=== PATIENT | female | born 1930 ===

== ENCOUNTER → 2021-04-18 | Outpatient (CLI) | payer MEDICARE | LOC: COL.RAD 07:30 | DX: S06.5X9A Traumatic subdural hemorrhage with loss of consciousness of unspecified duration, initial encounter (principal); J32.9 Chronic sinusitis, unspecified; I82.411 Acute embolism and thrombosis of right femoral vein ==

== ENCOUNTER 2021-04-26 06:38 | Day surgery (SDC) | payer MEDICARE ==
[2021-04-26] VITALS (9 sets, daily range): BP systolic 131–158; BP diastolic 61–99; PULSE 78–83; TEMP 97.8
[~2021-04-26] VITALS: Ht 165.1 cm; Wt 44.6 kg
[2021-04-26] MEDS ORDERED: ZEBETA10 MG PO (08:11)
[2021-04-26] MEDS ORDERED: DULCOLAX S10 MG/SUPP RC (08:11)
[2021-04-26] MEDS ORDERED: TYLENOL SU650 MG/SUP RC (08:12)
[2021-04-26] MEDS ORDERED: IMODIUM 2MG CAPS2 MG PO (08:13)
[2021-04-26] MEDS ORDERED: DIAPERRASHOINT TOP (08:13)
[2021-04-26] MEDS ORDERED: ANUSOL HC CREAM30 GM TP (08:13)
[2021-04-26] MEDS ORDERED: METAMUCIL3.4 GM/DOS PO (08:14)
[2021-04-26] MEDS ORDERED: MIRALAX PA17 GM/Dose PO (08:14)
[2021-04-26] MEDS ORDERED: ZESTRIL 10MG10 MG PO (08:14)
[2021-04-26] MEDS ORDERED: MILK OF MA400 MG/52 PO (08:15)
[2021-04-26] MEDS ORDERED: MYLANTA 150 ML150 M1 PO (08:15)
[2021-04-26] MEDS ORDERED: PRILOSEC 20MG20 MG PO (08:16)
[2021-04-26] MEDS ORDERED: TYLENOL 325MG325 MG PO (08:16)
--- NOTE | 2021-04-26 09:02 | NUR ---
SEE MERGE DOCUMENTATION FOR MEDICATION ADMINISTRATION AND INTRA/POST PROCEDURE SEDATION ASSESSMENTS.
--- NOTE | 2021-04-26 11:15 | NUR ---
Pt assisted to dress by this nurse and daughter. She is able to stand and pivot to wheelchair with x1 assist. Dressing over left groin puncture site remains clean dry and intact. Area is soft to palpation. INT DC'd with catheter intact. Pt is tolerating sips of coffee without issue. Pt assisted out by wheelchair to [facility] van, daughter takes DC paperwork.
== END 2021-04-26 13:22 ==
LOC: COL.CAR 06:38
DX: I82.411 Acute embolism and thrombosis of right femoral vein (principal); S06.5X9A Traumatic subdural hemorrhage with loss of consciousness of unspecified duration, initial encounter
CPT/HCPCS: C1880; C1894; J1200; J1644; J7120; Q9967

== ENCOUNTER → 2021-05-18 | Outpatient (CLI) | payer MEDICARE ==
[~2021-05-18] MED LIST: ANUSOL HC CREAM30 GM TP; ASPIRIN 81M81 MG/TA2 PO; DEBROX OT; DESITIN RAPID REL13% TP; DIAPERRASHOINT TOP; DULCOLAX S10 MG/SUPP RC; IMODIUM 2MG CAPS2 MG PO; METAMUCIL3.4 GM/DOS PO; MILK OF MA400 MG/52 PO; MIRALAX PA17 GM/Dose PO; MYLANTA 150 ML150 M1 PO; PRILOSEC 20MG20 MG PO; TYLENOL 325MG325 MG PO; TYLENOL SU650 MG/SUP RC; ZEBETA10 MG PO; ZESTRIL 10MG10 MG PO; ZOFRAN 4MG T4 MG/TAB PO
[2021-05-18 16:28] LABS: BASO % 0.2 % (0.0-2.0); ERYTHROCYTE SEDIMENTATION RATE 4 mm/hr (0-30); GRAN # 14.6 K/mm3 (1.4-6.5); GRAN % 89.1 % (42.2-75.2); HEMATOCRIT 37.6 % (37.0-47.0); HEMOGLOBIN 11.8 g/dl (12.5-16.0); MEAN CELL VOLUME 91 fl (80.0-100.0); MEAN CORPUSCULAR HEMOGLOBIN 28 pg (27-31); MEAN CORPUSCULAR HGB CONC 31 g/dl (33.0-37.0); MEAN PLATELET VOLUME 10.7 fl (7.4-10.4); MONO # 0.7 K/mm3 (0.1-0.6); MONO % 4.3 % (1.7-9.3); PLATELET COUNT 184 K/mm3 (130-400); RED BLOOD COUNT 4.15 M/mm3 (4.10-5.30); REDCELL DISTRIBUTION WIDTH-CV 19.8 % (11.5-14.5)
[2021-05-18 16:46] LABS: ALBUMIN 1.8 gm/dL (3.4-4.8); BILIRUBIN,TOTAL 0.6 mg/dL (0.2-1.2); CALCIUM 7.6 mg/dL (8.4-10.2); CREATININE, serum 0.81 mg/dL (0.57-1.11); POTASSIUM 3.7 mmol/L (3.5-4.5); TOTAL PROTEIN 5.7 gm/dL (6.2-8.1)
== END ==
LOC: ZCOL.LAB 15:58
PROVIDERS: Internal Medicine
DX: Z01.89 Encounter for other specified special examinations (principal)

== ENCOUNTER 2021-05-19 05:56 | Inpatient (IN) | payer MEDICARE ==
[~2021-05-19] VITALS: Ht 165.1 cm; Wt 43.2 kg
[~2021-05-19 05:56] MED LIST changes: -ASPIRIN 81M81 MG/TA2 PO; -DEBROX OT; -DESITIN RAPID REL13% TP; -ZOFRAN 4MG T4 MG/TAB PO
[2021-05-19 07:09] LABS: COLLECTION METHOD CATHETER
[2021-05-19 07:23] LABS: PH 5 (5-8); SQUAMOUS EPITHELIAL None Seen /hpf (0-10); URINE APPEARANCE Hazy (CLEAR/HAZY); URINE BACTERIA Rare /hpf (NONE SEEN); URINE BILIRUBIN Negative (NEGATIVE); URINE BLOOD 2+ (NEGATIVE); URINE COLOR Yellow (YELLOW); URINE GLUCOSE Negative (NEGATIVE); URINE KETONE Negative (NEGATIVE); URINE LEUKOCYTE ESTERASE 2+ (NEGATIVE); URINE NITRATE Negative (NEGATIVE); URINE PROTEIN(semi-quant) Negative (NEGATIVE); URINE RBC 20-50 /hpf (0-2); URINE UROBILINOGEN Negative (NEGATIVE)
[2021-05-19 08:08] LABS: BASO % 0.2 % (0.0-2.0); EOS % 0.1 % (0.0-4.0); GRAN # 17.9 K/mm3 (1.4-6.5); GRAN % 89.6 % (42.2-75.2); LYMPH # 1.2 K/mm3 (1.2-3.4); LYMPH % 6.2 % (20.0-51.0); MEAN CELL VOLUME 95 fl (80.0-100.0); MEAN CORPUSCULAR HGB CONC 30 g/dl (33.0-37.0); MEAN PLATELET VOLUME 10.1 fl (7.4-10.4); MONO # 0.6 K/mm3 (0.1-0.6); PLATELET COUNT 118 K/mm3 (130-400); RED BLOOD COUNT 3.01 M/mm3 (4.10-5.30); REDCELL DISTRIBUTION WIDTH-CV 20.4 % (11.5-14.5)
[2021-05-19 08:11] LABS: HEMATOCRIT 28.6 % (37.0-47.0); HEMOGLOBIN 8.6 g/dl (12.5-16.0); MEAN CORPUSCULAR HEMOGLOBIN 29 pg (27-31)
[2021-05-19 08:17] LABS: INR 2.5 (0.8-3.0); PROTHROMBIN TIME 28.5 SECONDS (9.7-12.8)
[2021-05-19 08:30] LABS: ALBUMIN 1.4 gm/dL (3.4-4.8); BILIRUBIN,TOTAL 0.7 mg/dL (0.2-1.2); C-REACTIVE PROTEIN 4.65 mg/dL (0.00-0.50); CALCIUM 7.6 mg/dL (8.4-10.2); CREATININE, serum 1.29 mg/dL (0.57-1.11); POTASSIUM 4.4 mmol/L (3.5-4.5); TOTAL PROTEIN 4.2 gm/dL (6.2-8.1)
[2021-05-19 08:37] LABS: TROPONIN-I 0.049 ng/mL (0.00-0.033)
[2021-05-19] MEDS ORDERED: ASPIRIN 81M81 MG/TA2 PO (09:07)
[2021-05-19] MEDS ORDERED: DEBROX OT (09:09)
[2021-05-19] MEDS ORDERED: DESITIN RAPID REL13% TP (09:10)
[2021-05-19 12:26] VITALS: BP 68/34; PULSE 96; TEMP 94.4
[2021-05-19] MEDS ORDERED: ZOFRAN 4MG T4 MG/TAB PO (13:24)
== END 2021-05-19 20:00 | disposition expired | DRG 951 ==
LOC: COL.ER 05:56 → SURG 10:43
PROVIDERS: Emergency Medicine; ADMIT Internal Medicine
DX: Z51.5 Encounter for palliative care (principal); A41.9 Sepsis, unspecified organism; K55.069 Acute infarction of intestine, part and extent unspecified; I82.220 Acute embolism and thrombosis of inferior vena cava; N39.0 Urinary tract infection, site not specified; K55.9 Vascular disorder of intestine, unspecified; N28.0 Ischemia and infarction of kidney; J90 Pleural effusion, not elsewhere classified; Z66 Do not resuscitate; I10 Essential (primary) hypertension; E16.2 Hypoglycemia, unspecified; K58.9 Irritable bowel syndrome, unspecified; K21.9 Gastro-esophageal reflux disease without esophagitis; I25.10 Atherosclerotic heart disease of native coronary artery without angina pectoris; Z96.642 Presence of left artificial hip joint; Z86.718 Personal history of other venous thrombosis and embolism
CPT/HCPCS: 99223-AI; 99238; J0696; J2060; J3010; J7030; Q9967